=== PATIENT | female | born 1995 | race Two or more races ===

== ENCOUNTER 2019-08-23 04:23 | Emergency (ER) | payer MEDICAID, OTHER ==
[~2019-08-23] VITALS: Ht 172.7 cm; Wt 99.8 kg
[2019-08-23 10:25] VITALS: BP 99/78
[2019-08-23] MEDS ORDERED: CEPHALEXIN 250 MG CAP PO ONE (10:45)
[2019-08-23] MEDS ORDERED: HYDROcodone-ACET 5/325MG TAB PO ONE (10:45)
== END 2019-08-23 12:25 | disposition home or self-care (01) ==
LOC: ER 04:23
DX: S80.12XA Contusion of left lower leg, initial encounter (principal); M25.551 Pain in right hip; M25.552 Pain in left hip; V89.2XXA Person injured in unspecified motor-vehicle accident, traffic, initial encounter; Y93.89 Activity, other specified; Y92.89 Other specified places as the place of occurrence of the external cause; Y99.8 Other external cause status
CPT/HCPCS: 72192; 93970

== ENCOUNTER 2019-08-30 15:21 | Emergency (ER) | payer MEDICAID ==
[~2019-08-30] VITALS: Ht 172.7 cm; Wt 99.8 kg
[2019-08-30 19:15] VITALS: BP 137/85
[2019-08-30] MEDS ORDERED: KETOROLAC TROMETH 60MG/2ML VIAL IM ONE (19:15)
== END 2019-08-30 21:24 | disposition home or self-care (01) ==
LOC: ER 15:21
DX: L03.116 Cellulitis of left lower limb (principal); Z48.01 Encounter for change or removal of surgical wound dressing; V43.52XD Car driver injured in collision with other type car in traffic accident, subsequent encounter
CPT/HCPCS: 93971; 99284; J1885

== ENCOUNTER 2019-09-08 15:19 | Emergency (ER) | payer OTHER, MEDICAID ==
[~2019-09-08] VITALS: Ht 172.7 cm; Wt 100.7 kg
[2019-09-08 16:55] LABS: Basophils # (auto) 0.1 uL; Basophils % (auto) 1.3 % (0.0-2.0); Eosinophils # (auto) 0.2 uL; Eosinophils % (auto) 3.6 % (0.0-7.0); Hematocrit 39.1 % (36.0-46.0); Hemoglobin 13.1 g/dL (12.2-16.2); Lymphocytes # (auto) 1.1 uL; Lymphocytes % (auto) 24.5 % (10.0-50.0); Mean Corpuscular Hemoglobin 29.9 pg (28.0-32.0); Mean Corpuscular Hgb Conc. 33.4 g/dL (32.0-36.0); Mean Corpuscular Volume 89.4 fL (80.0-100.0); Monocytes # (auto) 0.7 uL; Monocytes % (auto) 15.2 % (0.0-12.0); Neutrophils # (auto) 2.4 uL; Neutrophils % (auto) 55.4 % (37.0-80.0); Platelet Count (auto) 217 10^3/uL (140-450); Red Blood Cells 4.38 10^6/uL (4.0-5.20); Red Cell Distribution Width 14.6 % (11.8-14.3); White Blood Cell 4.3 10^3/uL (4.4-10.8)
[2019-09-08 17:14] LABS: Calcium 8.5 mg/dL (8.5-10.1); Potassium 4.2 mmol/L (3.5-5.1)
[2019-09-08 17:16] LABS: Bilirubin, Total 0.3 mg/dL (0.2-1.0)
[2019-09-08 17:45] VITALS: BP 130/72
== END 2019-09-08 17:52 | disposition home or self-care (01) ==
LOC: ER 15:19
DX: S76.011A Strain of muscle, fascia and tendon of right hip, initial encounter (principal); S80.12XA Contusion of left lower leg, initial encounter; X58.XXXA Exposure to other specified factors, initial encounter; Y93.89 Activity, other specified; Y92.89 Other specified places as the place of occurrence of the external cause; Y99.8 Other external cause status
CPT/HCPCS: 36415; 73590; 80053; 85025